=== PATIENT | female | born 1970 | race Caucasian/White ===

== ENCOUNTER 2016-06-09 11:33 | Inpatient (IN) | payer OTHER ==
[~2016-06-09] VITALS: Ht 180.3 cm; Wt 97.6 kg
[2016-06-09 11:49] VITALS: Ht 180.3 cm; Wt 97.6 kg
[2016-06-09 11:50] VITALS: BP 112/69; PULSE 90; RESP 18
[2016-06-09] MEDS ORDERED: PRENAT PO (11:51)
--- NOTE | 2016-06-09 12:29 | TRIAGE ---
OB Triage Datetime Report Generated by CPN: 06/09/2016 12:29 Datetime: 06/09/2016 12:10 Maternal Assessment Level of Consciousness: Fully Conscious DTR's/Clonus: DTRs 1+ Headache: Denies Blurred Vision: No Respiratory Effort: Unlabored Breath Sounds, Left: Clear and Equal Breath Sounds, Right: Clear and Equal Nausea/Vomiting: Denies RUQ Epigastric Pain: Denies Facial Edema: None Labor Evaluation Frequency: IRREGULAR Monitor Mode: External Duration (sec)2399: 40-50 Quality: Mild Pattern: Normal: <= 5 Contractions in 10 Minutes Resting Tone [place]: Relaxed Heart Rate FHR Baseline Rate: 125 Monitor Mode: External US Variability: Moderate 6-25 bpm Accelerations: 15X15 Decelerations: None Category: Category I Pain Assessment Pain Scale: 5 Pain Presence: Intermittent Pain Type: Contraction Pain Location: Back Pain Goal: 3 Pain Relief Measures: Comfort Measures Vaginal Exam Membrane Status: Intact Datetime: 06/09/2016 11:36 EGA: 41.0 Datetime: 06/09/2016 11:35 Assessment Type: Triage Maternal Assessment Level of Consciousness: Fully Conscious DTR's/Clonus: DTRs 2+; No Clonus Headache: Denies Blurred Vision: No Respiratory Effort: Unlabored; Regular Rhythm; Equal Expansion Breath Sounds, Left: Clear and Equal Breath Sounds, Right: Clear and Equal Nausea/Vomiting: Denies RUQ Epigastric Pain: Denies Lower Extremities Edema: None Degree: None Upper Extremities Edema: None Degree: None Facial Edema: None Fall Risk Assessment History of Falling: (0) No Secondary Diagnosis: (0) No Ambulatory Aid: (0) Bedrest/Nurse Assist IV Therapy: (0) No Gait: (0) Normal/Bedrest/Immobile Mental Status: (0) Oriented to Own Ability Fall Score: 0 Fall Risk Score Definition: No Risk: No action required Datetime: 06/09/2016 11:23 Time of Arrival: 06/09/2016 11:23 Arrived By: Ambulatory Arrived From: Home Chief Complaint: PT CAME IN C/O IRREGULAR UC'S AT 41 WKS Movement: Present Contractions: Irregular Rupture of Membranes: Denies Vaginal Discharge: Denies Recent Sexual Intercouse: Denies Abdominal Trauma: Not Applicable Patient Complaints: Contractions Additional Patient Complaints: NONE Time Provider Notified: 06/09/2016 12:17 Provider Notified: SHWETHA Initial Plan: MONITOR AND VE
--- NOTE | 2016-06-09 13:42 | RADRPT ---
PROCEDURE: US OB. CLINICAL INDICATION: Large for gestational age. TECHNIQUE: Multiple sonographic images of the uterus were obtained. The images were revi ewed on a PACS workstation. COMPARISON: No prior studies are available for comparison. FINDINGS: There is a single live intrauterine gestation. heart rate is 148 beats per minute. Measurements were made in order to determine age. The results are as follows: BPD = 9.57 cm. HC = 34.33 cm. AC = 33.56 cm. FL = 7.09 cm. Estimated weight is 3262 +/- 489 grams. LMP growth percentile is 14 %. Menstrual age by ultrasound dates is 38 weeks 1 day. The estimated date of delivery is 06/22/2016. Position is cephalic and placenta is anterior grade III. There is no evidence for an abruption or pl acenta previa. IMPRESSION: 1. Single live intrauterine gestation of 38 weeks 1 day menstrual age by ultrasound dates. 2. The estimated date of delivery is 06/22/2016. RPTAT: QQ .Arsen Sheikh MD, MD Date Time Electronically viewed and signed by .Arsen Sheikh MD, on 06/09/2016 13:42 .R/
[2016-06-09] MEDS ORDERED: LACTATED RINGER'S 1,000 ML IV PRN (14:27)
[2016-06-09] MEDS ORDERED: CARBOPROST 250 MCG INJ IM PRN (14:30)
[2016-06-09] MEDS ORDERED: METHYLERGONOVINE 0.2 MG INJ IM PRN (14:30)
[2016-06-09] MEDS ORDERED: MISOPROSTOL 200 MCG TAB PR PRN (14:30)
[2016-06-09] MEDS ORDERED: IBUPROFEN 600 MG TAB PO PRN (14:30)
[2016-06-09] MEDS ORDERED: BUTORPHANOL 2 MG INJ IV PRN (14:30)
[2016-06-09] MEDS ORDERED: OXYTOCIN 30 UNITS/LR 500 ML IV SCH ×2 (14:30)
[2016-06-09] MEDS ORDERED: OXYTOCIN 30 UNITS/LR 500 ML IV PRN ×2 (14:30→16:00)
[2016-06-09] MEDS ORDERED: LIDOCAINE 1% (MPF) 30 ML INJ INJ PRN (14:30)
[2016-06-09 14:32] LABS: ADD SCAN DIFF NO
[2016-06-09 14:35] LABS: BASOPHILS % 0.1 % (0.0-2.0); EOSINOPHILS # 0.1 10^3/ul (0.0-0.5); EOSINOPHILS % 0.9 % (0.0-7.0); HEMATOCRIT 36.2 % (37.0-47.0); HEMOGLOBIN 11.6 g/dl (12.0-16.0); LYMPHOCYTES # 1.3 10^3/ul (0.8-2.9); LYMPHOCYTES % 9.6 % (15.0-51.0); MEAN CORPUSCULAR HEMOGLOBIN 27.5 pg (29.0-33.0); MEAN CORPUSCULAR VOLUME 85.8 fl (82.0-101.0); MEAN PLATELET VOLUME 11.5 fl (7.4-10.4); MONOCYTE # 0.9 10^3/ul (0.3-0.9); MONOCYTES % 6.3 % (0.0-11.0); NEUTROPHIL # 11.2 10^3/ul (1.6-7.5); NEUTROPHILS % 82.1 % (39.0-77.0); PLATELET COUNT 208 10^3/UL (140-415); RED BLOOD COUNT 4.22 10^6/ul (4.20-5.40); RED CELL DISTRIBUTION WIDTH 13.8 % (11.5-14.5); WHITE BLOOD COUNT 13.7 10^3/ul (4.8-10.8)
[2016-06-09 14:38] LABS: INR 0.89; PT RATIO 0.9
[2016-06-09 14:39] LABS: PARTIAL THROMBOPLASTIN TIME 24.7 Sec (25.0-35.0)
[2016-06-09] MEDS ORDERED: FENTAnyl 2MCG/ML-ROPIV 0.2% 100 ML ONE (14:49)
[2016-06-09] MEDS: LACTATED RINGER'S 1,000 ML IV SCH ×2 (15:19→17:22)
[2016-06-09] MEDS ORDERED: ONDANSETRON 4 MG INJ IV STA (15:51)
[2016-06-09] MEDS ORDERED: FENTAnyl 2MCG/ML-ROPIV 0.2% 100 ML BAG EPI SCH (19:30)
[2016-06-09] MEDS ORDERED: NALOXONE (0.4 MG/ML) INJ IV PRN (19:30)
[2016-06-10] MEDS ORDERED: DEXTROSE 5%-LR 1,000 ML IV SCH (02:17)
[2016-06-10] MEDS ORDERED: LACTATED RINGER'S 1,000 ML IV* SCH (02:17)
--- NOTE | 2016-06-10 02:26 | HP ---
Date/Time of Note Date/Time of Note DATE: 06/10/16 TIME: 02:21 OB - History Hx of Present Free Text/Dictation 45 Year-old with SIUP at 41 weeks presents with a chief complaint of ucs. She has been receiving her care with Dr. Dickey. She states good movement. She denies nausea, vomiting, shortness of breath, chest pain, and abdominal pain between contractions, headache, visual changes, vaginal bleeding or LOF. Estimated Due Date: Jun 02, 2016 : 4 Para: 2 Spontaneous : 1 Therapeutic : 0 Care: Good Care Ultrasounds: Normal mid trimester US Obstetrical Complications: None Medical Complications: None Past Family/Social History * Past Medical, Surgical, Family and Obstetric Histories reviewed from chart. Blood Type: O+ Rubella: immune RPR/VDRL: Negative GBS Status: Negative HBsAG: Negative OB Admission Exam Vital Signs Vital Signs Vital Signs Date Time Temp Pulse Resp B/P Pulse Ox O2 Delivery O2 Flow Rate FiO2 06/09/16 11:50 98.1 90 18 112/69 Physical Exam HEENT: WNL Heart: Rhythm Normal Abdomen: WNL Extremities: Normal Reflexes: Normal Cervical Dilatation: 2cm Effacement: 75% Station: -2 Membranes: Intact Heart Rate: 140's Accelerations: Accelerations Present Decelerations: No Decelerations Varibility: Moderate Contractions on Admission: 6-10 Minutes Apart Intensity: Moderate Last 72 hours Lab Results CBC & BMP 06/09/16 13:50 OB Assessment/Plan Other plan: 45 Year-old with SIUP at 41 weeks in labor. - FHR: No sign of metabolic acidosis- Category I - Continious EFM, toco - CBC, blood type and screen - Analgesia options with R/B/A discussed in detail with patient - Epidural per patient request - Please see the orders - O+/Rubella: Immune/GBS negative Admission, procedures, expectations, risks and possible complications have been discussed in detail with the patient. Risk of vaginal delivery including but not limited to bleeding, infection, cervical laceration, placental retention, injury to fetus, blood transfusion, blood transfusion related infection, risk of anesthesia, adhesion, cervical laceration, episiotomy/laceration, possible delivery with risk of bleeding, infection, injury to other organs ( bowel, bladder, ureter, vessels, nerves), injury to fetus, blood transfusion, blood transfusion related infection, risk of anesthesia, scar and hernia formation, needs for future , removal of uterus or any other indicated surgery discussed with the patient. She expressed understanding and repeats the risks. All of her questions were answered; all appropriate consents will be signed. PHYSICIAN'S VERIFICATION OF INFORMED CONSENT: The patient was counseled regarding the procedure, its indications, risks, potential complications and alternatives and any questions were answered. Consent was obtained. PLANNED PROCEDURE/TREATMENT: Vaginal delivery with possible vacuum/forceps delivery episiotomy, repair of laceration possible delivery PHYSICIAN'S VERIFICATION OF INFORMED CONSENT FOR BLOOD TRANSFUSION: There is a reasonable possibility that blood transfusion will be necessary as a result of the patient's procedure. I have discussed the following with the patient/patient's legal order entry representative: An explanation of the benefits and risks of the transfusion of blood or blood products and the possible alternatives. Al questions have been answered to the patient's/patients legal representatives satisfaction. INFORMED CONSENT: The patient has been informed of: - The nature of the proposed care, treatment, services, medic- Potential benefits, risks or side effects, including potential problems related to recuperation. - The likelihood of achieving care treatment and service goals. - Reasonable alternatives to the proposed care, treatment and service. - The relevant risks, benefits and side effects related to alternatives, including the possible results of not receiving care, treatment and services. - When indicated, any limitations on the confidentiality of information learned from or about the patient. - If appropriate, the risks, benefits and alternatives of the drugs to be used for sedation/analgesia including moderate sedation. - If appropriate, patient has been provided information on the risks, benefits and alternatives to the transfusion of blood and/or blood products. VAIBHAV BERNAL Jun 10, 2016 02:26
--- NOTE | 2016-06-10 02:28 | LDN ---
Date/Time of Note Date/Time of Note DATE: 06/10/16 TIME: 02:26 Delivery Summary 45 Year-old with SIUP at 41 weeks Placenta Delivered: Spontaneously Meconium: none Perineum intact?: Yes Estimated blood loss: 100 Sponge & Needle done & correct: Yes All needle counts correct: Yes Any foreign bodies felt in the: No Problems: Delivery Information Sex Sex: male Apgars 1 Minute: 9 5 Minute: 9 10 Minute: 10 Suctioning Nose & mouth suctioned at medhat: Yes Umbilical Cord Umbilical cord with: 3 Vessels Cord presentations: nuchal cord Nuchal cord present X: 1 Cord Blood was obtained: Yes Copies To: CC: JAQUAN TADEO MD, SEDI Jun 10, 2016 02:28
[2016-06-10] MEDS ORDERED: ONDANSETRON 4 MG INJ IV PRN (02:30)
[2016-06-10] MEDS ORDERED: CARBOPROST 250 MCG INJ IM PRN (02:30)
[2016-06-10] MEDS ORDERED: LANOLIN 7 GM TUBE TOP PRN (02:30)
[2016-06-10] MEDS ORDERED: DIBUCAINE 1% 30 GM OINT PR PRN (02:30)
[2016-06-10] MEDS ORDERED: ACETAMINOPHEN 325 MG TAB PO PRN (02:30)
[2016-06-10] MEDS ORDERED: MISOPROSTOL 200 MCG TAB PR PRN (02:30)
[2016-06-10] MEDS ORDERED: METHYLERGONOVINE 0.2 MG INJ IM PRN (02:30)
[2016-06-10] MEDS ORDERED: DIPHENHYDRAMINE 50 MG INJ IV PRN (02:30)
[2016-06-10] MEDS ORDERED: ZOLPIDEM 5 MG TAB PO PRN (02:30)
[2016-06-10] MEDS ORDERED: WITCH HAZEL/GLYCERIN PAD PR PRN (02:30)
[2016-06-10] MEDS ORDERED: OXYTOCIN 30 UNITS/LR 500 ML IV PRN (02:30)
[2016-06-10 03:30] VITALS: BP 102/58; PULSE 64; RESP 19
[2016-06-10] MEDS: BENZOCAINE 20% 56 ML SPRAY TOP PRN (05:28)
[2016-06-10] MEDS: OXYCODONE/ASPIRIN (4.88/325) TAB PO PRN ×2 (05:29→19:39)
[2016-06-10] MEDS: IBUPROFEN 600 MG TAB PO SCH ×4 (05:30→23:51)
[2016-06-10 07:40] VITALS: BP 86/51; PULSE 55; RESP 18
[2016-06-10] MEDS: SENNA/DOCUSATE NA (8.6MG/50MG) TAB PO PRN (08:58)
[2016-06-10] MEDS: MULTIVIT/MIN/FOLATE/IRON/PREN TAB PO SCH (08:58)
[2016-06-10] MEDS ORDERED: MULTIVIT/MIN/FOLATE/IRON/PREN TAB PO SCH (09:00)
[2016-06-10 15:28] VITALS: BP 102/56; PULSE 70; RESP 18
[2016-06-10 20:00] VITALS: BP 96/55; PULSE 71; RESP 18
[2016-06-11 04:00] VITALS: BP 100/52; PULSE 63; RESP 18
[2016-06-11] MEDS: IBUPROFEN 600 MG TAB PO SCH ×4 (05:47→23:09)
[2016-06-11] MEDS: OXYCODONE/ASPIRIN (4.88/325) TAB PO PRN ×4 (05:51→23:13)
[2016-06-11 07:30] VITALS: BP 95/52; PULSE 56; RESP 18
[2016-06-11 08:06] LABS: ADD SCAN DIFF NO
[2016-06-11 08:42] LABS: BASOPHILS % 0.2 % (0.0-2.0); EOSINOPHILS # 0.2 10^3/ul (0.0-0.5); EOSINOPHILS % 1.6 % (0.0-7.0); HEMATOCRIT 28.5 % (37.0-47.0); HEMOGLOBIN 9.2 g/dl (12.0-16.0); LYMPHOCYTES # 1.4 10^3/ul (0.8-2.9); LYMPHOCYTES % 14.8 % (15.0-51.0); MEAN CORPUSCULAR HEMOGLOBIN 28.1 pg (29.0-33.0); MEAN CORPUSCULAR HGB CONC 32.3 g/dl (32.0-37.0); MEAN CORPUSCULAR VOLUME 87.2 fl (82.0-101.0); MEAN PLATELET VOLUME 11.5 fl (7.4-10.4); MONOCYTE # 0.8 10^3/ul (0.3-0.9); MONOCYTES % 8.3 % (0.0-11.0); NEUTROPHIL # 7.1 10^3/ul (1.6-7.5); PLATELET COUNT 184 10^3/UL (140-415); RED BLOOD COUNT 3.27 10^6/ul (4.20-5.40); RED CELL DISTRIBUTION WIDTH 13.9 % (11.5-14.5); WHITE BLOOD COUNT 9.6 10^3/ul (4.8-10.8)
[2016-06-11] MEDS ORDERED: INFLUENZA VIRUS VACCINE 0.5 ML (DISPENSING) IM* ONE (09:00)
[2016-06-11] MEDS: MULTIVIT/MIN/FOLATE/IRON/PREN TAB PO SCH (09:28)
[2016-06-11] MEDS: SENNA/DOCUSATE NA (8.6MG/50MG) TAB PO PRN (09:28)
--- NOTE | 2016-06-11 11:50 | PN ---
Date/Time of Note Date/Time of Note DATE: 06/11/16 TIME: 11:49 OB Subjective Subjective Subjective day 1 VSs stable afebrile abdomen soft uterus firm lochia normal extremity normal. Laboratory Tests Test 06/11/16 07:36 Basophils # 0.010^3/ul Basophils % 0.2% Eosinophils # 0.210^3/ul Eosinophils % 1.6% Hematocrit 28.5% Hemoglobin 9.2g/dl Lymphocytes # 1.410^3/ul Lymphocytes % 14.8% Mean Corpuscular Hemoglobin 28.1pg Mean Corpuscular Hemoglobin Concent 32.3g/dl Mean Corpuscular Volume 87.2fl Mean Platelet Volume 11.5fl Monocytes # 0.810^3/ul Monocytes % 8.3% Neutrophils # 7.110^3/ul Neutrophils % 74.0% Nucleated Red Blood Cells # 0.010^3/ul Nucleated Red Blood Cells % 0.0/100WBC Platelet Count 36311^3/UL Red Blood Count 3.2710^6/ul Red Cell Distribution Width 13.9% White Blood Count 9.610^3/ul Current Medications Medications (Trade) Dose Ordered Sig/Katie Route PRN Reason Start Time Stop Time Status Last Admin Dose Admin Lactated Ringer's (Lr) 1,000 ml @ 125 mls/hr Q8H IV 06/09/16 14:27 06/10/16 03:59 DC 06/09/16 17:22 Butorphanol Tartrate (Stadol) 1 mg Q2H PRN IV PAIN 06/09/16 14:30 06/10/16 03:59 DC Lidocaine 30 ml 30 ml ONCE PRN INJ EPISIOTOMY/TEARING 06/09/16 14:30 06/10/16 03:59 DC Oxytocin/Lactated Ringer's 500 ml @ 125 mls/hr ONCE -MAY REPEAT X1 IV 06/09/16 14:30 06/10/16 03:59 DC 06/10/16 01:46 Oxytocin/Lactated Ringer's 500 ml @ 125 mls/hr ONCE IV 06/09/16 14:30 06/10/16 03:59 DC 06/10/16 02:10 Ibuprofen 600 mg 600 mg ONCE PRN PO Mild Pain (Pain Score 1-3) 06/09/16 14:30 06/10/16 04:00 DC 06/10/16 02:02 Lactated Ringer's 1,000 ml @ 2,000 mls/hr Q30M PRN IV PRE-EPIDURAL BOLUS 06/09/16 14:27 06/10/16 04:00 DC 06/09/16 15:20 Oxytocin/Lactated Ringer's 500 ml @ 0 mls/hr ONCE PRN IV For Hemorrhage Management 06/09/16 14:30 06/10/16 04:00 DC Methylergonovine Maleate (Methergine) 0.2 mg ONCE PRN IM VAGINAL BLEEDING 06/09/16 14:30 06/10/16 04:00 DC Carboprost Tromethamine (Hemabate) 250 mcg ONCE PRN IM VAGINAL BLEEDING 06/09/16 14:30 06/10/16 04:00 DC Misoprostol 1000 mcg 1,000 mcg ONCE PRN [place] VAGINAL BLEEDING 06/09/16 14:30 06/10/16 04:00 DC Fentanyl/ Ropivacaine 100 ml @ ud STK-MED ONCE .ROUTE 06/09/16 14:49 06/09/16 14:50 DC Oxytocin/Lactated Ringer's 500 ml @ 0 mls/hr Q0M PRN IV LABOR INDUCTION 06/09/16 16:00 06/10/16 03:59 DC Ondansetron HCl (Zofran Inj) 4 mg ONCE STAT IV 06/09/16 15:51 06/09/16 15:59 DC 06/09/16 16:04 Naloxone HCl (Narcan) 0.2 mg Q2M PRN IV FOR RESP RATE 8 OR LESS 06/09/16 19:30 06/10/16 03:59 DC Fentanyl/ Ropivacaine 100 ml 100 ml EPIDURAL (PCEA) EPI 06/09/16 19:30 06/10/16 03:59 DC 06/10/16 00:25 Lactated Ringer's (Lr) 1,000 ml @ 125 mls/hr Q8H IV* 06/10/16 02:17 06/10/16 07:48 DC 06/10/16 05:29 Ibuprofen (Motrin) 600 mg Q6 PO 06/10/16 06:00 06/11/16 11:05 Acetaminophen (Tylenol Tab) 650 mg Q4H PRN PO PAIN LEVEL 1-5 06/10/16 02:30 Oxycodone/Aspirin (Percodan) 1 tab Q3H PRN PO PAIN LEVEL 1-5 06/10/16 02:30 06/11/16 11:09 Ondansetron HCl (Zofran Inj) 4 mg Q6H PRN IV NAUSEA AND/OR VOMITING 06/10/16 02:30 Diphenhydramine HCl (Benadryl) 25 mg Q6H PRN IV PRURITUS 06/10/16 02:30 06/10/16 03:59 DC Zolpidem Tartrate (Ambien) 5 mg QHS PRN PO INSOMNIA 06/10/16 02:30 Senna/Docusate Sodium (Senokot-S) 1 tab BID PRN PO CONSTIPATION 06/10/16 02:30 06/11/16 09:28 Witch Jenna/ Glycerin (Tucks Pads) 1 pad BEDSIDE MEDICATION PRN [place] HEMORRHOID/EPISIOTMY PAIN 06/10/16 02:30 06/10/16 05:28 Benzocaine (Dermoplast [place]) 1 spray BEDSIDE MEDICATION PRN TOP HEMORRHOID/EPISIOTMY PAIN 06/10/16 02:30 06/10/16 05:28 Dibucaine (Nupercainal) 1 applic BEDSIDE MEDICATION PRN [place] HEMORRHOID/EPISIOTMY PAIN 06/10/16 02:30 Lanolin ([id number]) 1 applic BEDSIDE MEDICATION PRN TOP BEDSIDE FOR MARIAH TO NIPPLES 06/10/16 02:30 Measles/Mumps/ Rubella Vaccine Live (Mmr Ii Vaccine) 0.5 ml ONCE ONCE SC* 06/12/16 09:00 06/12/16 09:00 DC Diphtheria/ Tetanus/Acell Pertussis 0.5 ml 0.5 ml ONCE ONCE IM* 06/12/16 09:00 06/12/16 09:01 Oxytocin/Lactated Ringer's 500 ml @ 0 mls/hr ONCE PRN IV For Hemorrhage Management 06/10/16 02:30 Methylergonovine Maleate (Methergine) 0.2 mg ONCE PRN IM VAGINAL BLEEDING 06/10/16 02:30 Carboprost Tromethamine (Hemabate) 250 mcg ONCE PRN IM VAGINAL BLEEDING 06/10/16 02:30 06/10/16 03:59 DC Misoprostol 1000 mcg 1,000 mcg ONCE PRN [place] VAGINAL BLEEDING 06/10/16 02:30 Dextrose/Lactated Ringer's (D5-Lr) 1,000 ml @ 125 mls/hr Q8H IV 06/10/16 02:17 06/10/16 03:59 DC Prenat Multivit/ Global Technical Writer/Iron/Folic Ac ( S) 1 tab DAILY PO 06/10/16 09:00 06/10/16 09:00 DC Prenat Multivit/ Global Technical Writer/Iron/Folic Ac ( S) 1 tab DAILY PO 06/10/16 09:00 06/11/16 09:28 Influenza Virus Vaccine (Fluzone) 0.5 ml ONCE ONCE IM* 06/11/16 09:00 06/11/16 09:01 DC 06/11/16 09:29 JAQUAN TADEO MD Jun 11, 2016 11:50
[2016-06-11 15:30] VITALS: BP 109/72; PULSE 61; RESP 18
[2016-06-11 20:00] VITALS: BP 94/55; PULSE 66; RESP 20
[2016-06-12 04:28] VITALS: BP 105/52; PULSE 78; RESP 20
[2016-06-12] MEDS: IBUPROFEN 600 MG TAB PO SCH ×2 (05:42→11:30)
[2016-06-12] MEDS: OXYCODONE/ASPIRIN (4.88/325) TAB PO PRN (05:42)
[2016-06-12 08:00] VITALS: BP 106/69; PULSE 67; RESP 20
[2016-06-12] MEDS: MULTIVIT/MIN/FOLATE/IRON/PREN TAB PO SCH (09:00)
[2016-06-12] MEDS ORDERED: DIPHTH/TET/ACEL PERTUSS (ADULT) 0.5 ML VIAL IM* ONE (09:00)
[2016-06-12] MEDS ORDERED: MEASLES,MUMPS,RUBELLA VACCINE INJ SC* ONE (09:00)
--- NOTE | 2016-06-12 11:38 | PN ---
Date/Time of Note Date/Time of Note DATE: 06/12/16 TIME: 11:37 OB Subjective Subjective Subjective day VSS, afebrile abdomen soft uterus for nuclear normal extremity Current Medications Medications (Trade) Dose Ordered Sig/Katie Route PRN Reason Start Time Stop Time Status Last Admin Dose Admin Lactated Ringer's (Lr) 1,000 ml @ 125 mls/hr Q8H IV 06/09/16 14:27 06/10/16 03:59 DC 06/09/16 17:22 Butorphanol Tartrate (Stadol) 1 mg Q2H PRN IV PAIN 06/09/16 14:30 06/10/16 03:59 DC Lidocaine 30 ml 30 ml ONCE PRN INJ EPISIOTOMY/TEARING 06/09/16 14:30 06/10/16 03:59 DC Oxytocin/Lactated Ringer's 500 ml @ 125 mls/hr ONCE -MAY REPEAT X1 IV 06/09/16 14:30 06/10/16 03:59 DC 06/10/16 01:46 Oxytocin/Lactated Ringer's 500 ml @ 125 mls/hr ONCE IV 06/09/16 14:30 06/10/16 03:59 DC 06/10/16 02:10 Ibuprofen 600 mg 600 mg ONCE PRN PO Mild Pain (Pain Score 1-3) 06/09/16 14:30 06/10/16 04:00 DC 06/10/16 02:02 Lactated Ringer's 1,000 ml @ 2,000 mls/hr Q30M PRN IV PRE-EPIDURAL BOLUS 06/09/16 14:27 06/10/16 04:00 DC 06/09/16 15:20 Oxytocin/Lactated Ringer's 500 ml @ 0 mls/hr ONCE PRN IV For Hemorrhage Management 06/09/16 14:30 06/10/16 04:00 DC Methylergonovine Maleate (Methergine) 0.2 mg ONCE PRN IM VAGINAL BLEEDING 06/09/16 14:30 06/10/16 04:00 DC Carboprost Tromethamine (Hemabate) 250 mcg ONCE PRN IM VAGINAL BLEEDING 06/09/16 14:30 06/10/16 04:00 DC Misoprostol 1000 mcg 1,000 mcg ONCE PRN [place] VAGINAL BLEEDING 06/09/16 14:30 06/10/16 04:00 DC Fentanyl/ Ropivacaine 100 ml @ ud STK-MED ONCE .ROUTE 06/09/16 14:49 06/09/16 14:50 DC Oxytocin/Lactated Ringer's 500 ml @ 0 mls/hr Q0M PRN IV LABOR INDUCTION 06/09/16 16:00 06/10/16 03:59 DC Ondansetron HCl (Zofran Inj) 4 mg ONCE STAT IV 06/09/16 15:51 06/09/16 15:59 DC 06/09/16 16:04 Naloxone HCl (Narcan) 0.2 mg Q2M PRN IV FOR RESP RATE 8 OR LESS 06/09/16 19:30 06/10/16 03:59 DC Fentanyl/ Ropivacaine 100 ml 100 ml EPIDURAL (PCEA) EPI 06/09/16 19:30 06/10/16 03:59 DC 06/10/16 00:25 Lactated Ringer's (Lr) 1,000 ml @ 125 mls/hr Q8H IV* 06/10/16 02:17 06/10/16 07:48 DC 06/10/16 05:29 Ibuprofen (Motrin) 600 mg Q6 PO 06/10/16 06:00 06/12/16 11:30 Acetaminophen (Tylenol Tab) 650 mg Q4H PRN PO PAIN LEVEL 1-5 06/10/16 02:30 Oxycodone/Aspirin (Percodan) 1 tab Q3H PRN PO PAIN LEVEL 1-5 06/10/16 02:30 06/12/16 05:42 Ondansetron HCl (Zofran Inj) 4 mg Q6H PRN IV NAUSEA AND/OR VOMITING 06/10/16 02:30 Diphenhydramine HCl (Benadryl) 25 mg Q6H PRN IV PRURITUS 06/10/16 02:30 06/10/16 03:59 DC Zolpidem Tartrate (Ambien) 5 mg QHS PRN PO INSOMNIA 06/10/16 02:30 Senna/Docusate Sodium (Senokot-S) 1 tab BID PRN PO CONSTIPATION 06/10/16 02:30 06/11/16 09:28 Witch Jenna/ Glycerin (Tucks Pads) 1 pad BEDSIDE MEDICATION PRN [place] HEMORRHOID/EPISIOTMY PAIN 06/10/16 02:30 06/10/16 05:28 Benzocaine (Dermoplast [place]) 1 spray BEDSIDE MEDICATION PRN TOP HEMORRHOID/EPISIOTMY PAIN 06/10/16 02:30 06/10/16 05:28 Dibucaine (Nupercainal) 1 applic BEDSIDE MEDICATION PRN [place] HEMORRHOID/EPISIOTMY PAIN 06/10/16 02:30 Lanolin ([id number]) 1 applic BEDSIDE MEDICATION PRN TOP BEDSIDE FOR MARIAH TO NIPPLES 06/10/16 02:30 Measles/Mumps/ Rubella Vaccine Live (Mmr Ii Vaccine) 0.5 ml ONCE ONCE SC* 06/12/16 09:00 06/12/16 09:00 DC Diphtheria/ Tetanus/Acell Pertussis 0.5 ml 0.5 ml ONCE ONCE IM* 06/12/16 09:00 06/12/16 09:01 DC Oxytocin/Lactated Ringer's 500 ml @ 0 mls/hr ONCE PRN IV For Hemorrhage Management 06/10/16 02:30 Methylergonovine Maleate (Methergine) 0.2 mg ONCE PRN IM VAGINAL BLEEDING 06/10/16 02:30 Carboprost Tromethamine (Hemabate) 250 mcg ONCE PRN IM VAGINAL BLEEDING 06/10/16 02:30 06/10/16 03:59 DC Misoprostol 1000 mcg 1,000 mcg ONCE PRN [place] VAGINAL BLEEDING 06/10/16 02:30 Dextrose/Lactated Ringer's (D5-Lr) 1,000 ml @ 125 mls/hr Q8H IV 06/10/16 02:17 06/10/16 03:59 DC Prenat Multivit/ [place]/Iron/Folic Ac ( S) 1 tab DAILY PO 06/10/16 09:00 06/10/16 09:00 DC Prenat Multivit/ [place]/Iron/Folic Ac ( S) 1 tab DAILY PO 06/10/16 09:00 06/12/16 09:00 Influenza Virus Vaccine (Fluzone) 0.5 ml ONCE ONCE IM* 06/11/16 09:00 06/11/16 09:01 DC 06/11/16 09:29 JAQUAN TADEO MD Jun 12, 2016 11:38
--- NOTE | 2016-06-12 11:44 | PD.PPDC ---
CONDUCTOR YARD Discharge Instruction Condition Patient Condition: Good Diet Diet: Resume Regular Diet Follow-up Follow-up with Physician: 2, Week/Weeks Provider Information: Patient advised to make appointment to be seen at the clinic in 2 weeks discharge home with follow-up instructions for care. Return to clinic for HOPPER OPERATOR Instructions: Fever greater than 101 Worsening abdominal pain More than 2 pads per hour OB Instructions: Breast Tenderness Blurried Vision Headache JAQUAN TADEO MD Jun 12, 2016 11:44
--- NOTE | 2016-06-12 11:46 | DS ---
Date/Time of Note Date/Time of Note DATE: 06/12/16 TIME: 11:44 Obstetrical Discharge Record Final Diagnosis Final Diagnosis: Term delivered Vaginal Delivery Obstetrical Delivery: Spontaneous Condition on Discharge Physical Assessment Last Vitals: Post day 2 Afebrile abdomen soft you choose for lochia normal and discharge home with follow-up instruction to be seen at the clinic in 2 weeks Voiding: Yes Bowel Movement: Yes Breast: Soft, non-tender, Filling Fundus: Firm Calf Tenderness: No Patient Condition: Good JAQUAN TADEO MD Jun 12, 2016 11:46
[2016-06-12 15:30] VITALS: BP 112/70; PULSE 70; RESP 18
[2016-06-12] MEDS: BENZOCAINE 20% 56 ML SPRAY TOP PRN (15:37)
== END 2016-06-12 17:10 | disposition home or self-care (01) | DRG 775 ==
LOC: OBT 11:33 → L-D 11:34 → OBT 12:20 → L-D 13:43 → PP1 06-10 03:43
PROVIDERS: ADMIT Obstetrics & Gynecology; ATTEND Obstetrics & Gynecology
PROC: 10E0XZZ Delivery of Products of Conception, External Approach (ICD-10-PCS; principal; 2016-06-10)
DX: O48.0 Post-term pregnancy (principal); O09.523 Supervision of elderly multigravida, third trimester; Z3A.41 41 weeks gestation of pregnancy; Z37.0 Single live birth
CPT/HCPCS: 62319; 76815; 85025; 85610; 85730; 86592; 86900; 86901; 90686; 90715; G0463; J2405; J2590; J3010; J7120; J7121